=== PATIENT | female | born 1985 | race Caucasian/White ===

== ENCOUNTER 2019-03-29 08:55 | Inpatient (IN) ==
[2019-03-29] MEDS ORDERED: LACTATED RINGER'S 1,000 ML IV ONE (09:38)
[2019-03-29] MEDS ORDERED: BUTORPHANOL TARTRATE 2 MG/ML VIAL IV ONE (09:50)
--- NOTE | 2019-03-29 09:50 | History & Physical Report ---
Date of Service March 29, 2019 Assessment & Plan (1) 37 weeks gestation of : Carmel is a 34-year-old G1, P0 who presents at 37+6 with increasing contractions and rupture of membranes. Uncomplicated course. �GBS negative, O+, rubella immune �No history of asthma, migraines, hypertension, diabetes �Would like an epidural. No cord blood donation. �Membranes spontaneously ruptured during observation. �1/100/-2 �Contractions occurring about every 3 minutes �Admit to L&D, anticipate vaginal delivery with epidural �Lactated Ringer's 1 L bolus followed by 125 cc/h maintenance �Stadol 1 mg x 1 dose (2) Rupture of membranes with clear amniotic fluid: History of Present Illness Chief Complaint: Contractions Primary Care Provider: NO PCP Carmel is a 34-year-old G1, P0 with ROBERT 04/13 who presents at 37+6 with contractions. Her contractions began at about 1:15 AM and were about 5 minutes apart. They have increased gradually over the course of the morning. In the last hour they have become increasingly intense, 8/10 in intensity at time of visit, and have increased to every 3 minutes. She has had minimal pink-tinged clear discharge but has not had a gush of fluid. Denies altagracia vaginal bleeding. She is still felt good movement, and has no concerns for movement. She is not donating cord blood. She would like an epidural. She is group B strep negative, blood type O+, rubella immune, and received Tdap during . VDRL/RPR nonreactive, G/C-, CF screen negative. MSAFP negative. She has no other past medical history, and this has been uncomplicated. D Enies history of asthma, migraines, clotting disorders. SHX: [place] teeth extraction. No other surgical history. No problems or react ions to anesthesia. No known drug allergies, no known food allergies She is here with her , Thiago. No tobacco, alcohol, or substance use during . Review of Systems no fever, no chills, no body aches, no weakness and no problem reported no blind spots, no diplopia, not seeing flashes, no spots in vision, no worsening vision and no problem reported no ear pain, no ear discharge, no dizziness, no nasal congestion, no nasal discharge, no sore throat, no dysphagia and no problem reported no cough, no chest congestion, no change in sputum, no dyspnea, no dyspnea on exertion, no pain on inspiration, no sputum production and no wheezing + edema (trace swelling in feet/ankles, no change from normal); no chest pain, no chest pain at rest, no chest pain with activity, no dyspnea, no dyspnea at rest, no dyspnea on exertion, no orthopnea, no palpitations, no lightheadedness and no calf pain no abdominal pain, no heartburn, no nausea, no vomiting, no constipation and no diarrhea/loose stools no dysuria, no difficulty urinating, no hematuria, no abnormal vaginal bleeding and no vaginal discharge no joint pain, no myalgia, no muscle weakness and no body aches no rash, no lesions, no new lesions, no changing lesions and no problem reported no localized weakness, no generalized weakness, no paralysis, no loss of sensation, no tingling, no numbness, no paresthesia, no lack of coordination, no dizziness, no syncope, no headache(s) and no confusion no depression, no anxiety and no confusion no fatigue Physical Exam Physical Exam: General: A&Ox3. NAD. Cooperative. HEENT: Atraumatic, normocephalic. Pulm: CTAB A&P. -wheezes, -rales, -rhonchi. Symmetrical chest rise. No increase work of breathing. No respiratory distress. Cardiac: RRR, -mrg. Radial pulses intact and symmetrical. Abdominal: Abdomen distended consistent with third trimester . Nontender, no right upper quadrant tenderness. Extremity: 1+ edema in the ankles bilaterally. PT/DP pulses intact and symmetrical. Homans negative. No calf asymmetry. No calf tenderness, warmth, erythema. Neuro: Visual acuity grossly intact. Pupils equal and reactive to light and accommodation. Extraocular movements intact. Moving all external midis equally. 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 No distal extremity paresthesia or numbness. No facial asymmetry. Monitoring External Monitor Category 1 tracing. Baseline approximately 130 bpm. Moderate variability, no decelerations noted. Supervising Physician Co-Signing Physician Notes Resident Physician Supervision Note: I was present with Dr. Dr. Vega during the history and exam. I discussed the case with the resident and agree with the findings and plan as documented in the note. Any exceptions or clarifications are listed here: Patient ruptured grossly under observation. fetus category two with one variable noted. large ketones. will bolus. admit. cx--/-2. expectant management for now. toco--q3-5min Documented By: Mayra Neely MD, FACOG Resident Activity Tracking Resident Involvement: Resident Care Provided Care Provided: Adult Hospital Medicine
[2019-03-29] MEDS ORDERED: OXYTOCIN 30 UNITS/500 ML BAG IV PRN (10:10)
--- NOTE | 2019-03-29 10:18 | History & Physical Report ---
Date of Service March 29, 2019 Assessment & Plan (1) 37 weeks gestation of : Carmel is a 34-year-old G1, P0 who presents at 37+6 with increasing contractions and rupture of membranes. Uncomplicated course. �GBS negative, O+, rubella immune �No history of asthma, migraines, hypertension, diabetes �Would like an epidural. No cord blood donation. �Membranes spontaneously ruptured during observation. �1/100/-2 �Contractions occurring about every 3 minutes �Admit to L&D, anticipate vaginal delivery with epidural �Lactated Ringer's 1 L bolus followed by 125 cc/h maintenance �Stadol 1 mg x 1 dose (2) Rupture of membranes with clear amniotic fluid: History of Present Illness Primary Care Provider: NO PCP Carmel is a 34-year-old G1, P0 with ROBERT 04/13 who presents at 37+6 with contractions. Her contractions began at about 1:15 AM and were about 5 minutes apart. They have increased gradually over the course of the morning. In the last hour they have become increasingly intense, 8/10 in intensity at time of visit, and have increased to every 3 minutes. She has had minimal pink-tinged clear discharge but has not had a gush of fluid. Denies altagracia vaginal bleeding. She is still felt good movement, and has no concerns for movement. She is not donating cord blood. She would like an epidural. She is group B strep negative, blood type O+, rubella immune, and received Tdap during . VDRL/RPR nonreactive, G/C-, CF screen negative. MSAFP negative. She has no other past medical history, and this has been uncomplicated. D Enies history of asthma, migraines, clotting disorders. SHX: [place] teeth extraction. No other surgical history. No problems or reactions to anesthesia. No known drug allergies, no known food allergies She is here with her , Thiago. No tobacco, alcohol, or substance use during . Allergies Allergy/AdvReac Type Severity Reaction Status Date / Time No Known Drug Allergies Allergy Unknown Verified 03/29/19 10:29 Home Medications Home Medications Medication Instructions Recorded Confirmed Type PNV cmb#95-ferrous fumarate-FA 1 tab PO DAILY 03/29/19 03/29/19 History [] Review of Systems no fever, no chills, no body aches, no weakness and no problem reported no blind spots, no diplopia, not seeing flashes, no spots in vision, no worsening vision and no problem reported no ear pain, no ear discharge, no dizziness, no nasal congestion, no nasal discharge, no sore throat, no dysphagia and no problem reported no cough, no chest congestion, no change in sputum, no dyspnea, no dyspnea on exertion, no pain on inspiration, no sputum production and no wheezing + edema (trace swelling in feet/ankles, no change from normal); no chest pain, no chest pain at rest, no chest pain with activity, no dyspnea, no dyspnea at rest, no dyspnea on exertion, no orthopnea, no palpitations, no lightheadedness and no calf pain no abdominal pain, no heartburn, no nausea, no vomiting, no constipation and no diarrhea/loose stools no dysuria, no difficulty urinating, no hematuria, no abnormal vaginal bleeding and no vaginal discharge no joint pain, no myalgia, no muscle weakness and no body aches no rash, no lesions, no new lesions, no changing lesions and no problem reported no localized weakness, no generalized weakness, no paralysis, no loss of sensation, no tingling, no numbness, no paresthesia, no lack of coordination, no dizziness, no syncope, no headache(s) and no confusion no depression, no anxiety and no confusion no fatigue + edema (trace swelling in feet/ankles, no change from normal); no chest pain, no chest pain at rest, no chest pain with activity, no dyspnea, no dyspnea at rest, no dyspnea on exertion, no orthopnea, no palpitations, no lightheadedness and no calf pain Physical Exam Physical Exam: General: A&Ox3. NAD. Cooperative. HEENT: Atraumatic, normocephalic. Pulm: CTAB A&P. -wheezes, -rales, -rhonchi. Symmetrical chest rise. No increase work of breathing. No respiratory distress. Cardiac: RRR, -mrg. Radial pulses intact and symmetrical. Abdominal: Abdomen distended consistent with third trimester . Nontender, no right upper quadrant tenderness. Extremity: 1+ edema in the ankles bilaterally. PT/DP pulses intact and symmetrical. Homans negative. No calf asymmetry. No calf tenderness, warmth, erythema. Neuro: Visual acuity grossly intact. Pupils equal and reactive to light and accommodation. Extraocular movements intact. Moving all external midis equally. 5/5 diesel tractor operator strength, elbow flexion, elbow extension. No distal extremity paresthesia or numbness. No facial asymmetry. Monitoring External Monitor Category 1 tracing. Baseline approximately 130 bpm. Moderate variability, no decelerations noted. Supervising Physician Co-Signing Physician Notes I was present with Dr. Dr. Vega during the history and exam. I discussed the case with the resident and agree with the findings and plan as documented in the note. Any exceptions or clarifications are listed here: Patient ruptured grossly under observation. fetus category two with one variable noted. large ketones. will bolus. admit. cx--/-2. expectant management for now. toco--q3-5min Documented By: Mayra Neely MD, FACOG Resident Activity Tracking Resident Involvement: Resident Care Provided Care Provided: Adult Hospital Medicine
[2019-03-29 10:25] LABS: Hematocrit (blood only) 33.2 % (37-47); Hemoglobin 11.7 g/dL (12.0-16.0); Mean Corpuscular Volume 87.1 fL (80-100); Mean Platelet Volume 9.3 fL (7.4-10.4); Platelet Count 266 K/uL (130-400); RDW Coefficient of Variation 13.2 % (11.5-14.5); RDW Standard Deviation 42.4 fL (36.4-46.3); Red Blood Count 3.81 M/uL (4.2-5.4)
[2019-03-29 10:28] LABS: Mean Corpuscular Hgb Conc 35.2 g/dL (32-36)
[2019-03-29] MEDS ORDERED: BUTORPHANOL TARTRATE 2 MG/ML VIAL IV STA (11:52)
[2019-03-29] MEDS ORDERED: fentaNYL citrate 100 MCG/2 ML VIAL ONE (13:00)
[2019-03-29] MEDS: LACTATED RINGER'S 1,000 ML IV SCH ×2 (13:00→19:00)
[2019-03-29] MEDS ORDERED: ePHEDrine sulfate 50 MG/ML AMP ONE (13:00)
[2019-03-29] MEDS ORDERED: BUPIVACAINE 0.25% 30 ML VIAL ONE (13:00)
[2019-03-29] MEDS ORDERED: fentaNYL 2MCG/ML ROPIV 1.25MG/ML 100 ML BAG EPI ONE (13:01)
--- NOTE | 2019-03-29 13:09 | Obstetrical Progress Note ---
Date of Service March 29, 2019 Assessment & Plan (1) 37 weeks gestation of : (2) Rupture of membranes with clear amniotic fluid: active labor, good cx change. anesth consulted to place epidural. Subjective feels pressure, wants to have epidural if able. Physical Exam Constitutional: WD/WN, vitals as above Genitourinary: Manual OB Exam: + cervical dilation 6 cm, + cervical effacement 100%, + station 0 and + amniotic fluid clear OB Exam Monitor Tracing: + external FHT monitor used (120 moderate variability), + external uterine monitor used (not traced yet, but was q3) and + category I Results & Data Vital Signs (Past 12 Hours) Vital Signs Temp Pulse Resp BP 03/29/19 09:45 37 C 18 03/29/19 09:24 37 C 91 H 18 118/75
--- NOTE | 2019-03-29 13:10 | Anesthesiology Consultation ---
Date of Service March 29, 2019 Assessment & Plan (1) Encounter for pre-operative examination: Chart Review Chart Review: Acceptable Risk for Surgery Consults Requested none ASA ASA2 Proposed Anesthesia Anesthesia Type: Labor Epidural Risk / Benefits Reviewed With: PT / POA / Parent / Guardian, Accepts Plan and Informed Consent Obtained History Height/Weight Height: 5 ft 4 in Weight: 85.729 kg Allergies Allergy/AdvReac Type Severity Reaction Status Date / Time No Known Drug Allergies Allergy Unknown Verified 03/29/19 10:29 Medications Home Medications Medication Instructions Recorded Confirmed Last Taken PNV cmb#95-ferrous fumarate-FA 1 tab PO DAILY 03/29/19 03/29/19 Unknown [] NPO Date Last Intake of Fluids: 03/29/19 Time Last Intake of Fluids: 13:08 Date Last Intake of Solids: 03/28/19 Time Last Intake of Solids: 20:00 Past Medical History Medical History History of tooth extraction No known health problems Past Anesthesia History No Hx of Anesthesia Complications History of PONV No Hx of PONV and No Hx of Motion Sickness Social History Smoking Status: Never smoker Do You Dip or Chew Tobacco: No Hx Alcohol Use: No Hx Substance Use: No Review of Systems Patient denies active symptoms of GERD. Patient denies history of abnormal bleeding or bleeding disorder. Patient denies active use of anticoagulants other than low dose aspirin. Patient denies numbness, tingling or weakness in lower extremities. Physical Exam Vital Signs Last Vital Signs Temp 37 C 03/29/19 09:45 Pulse 91 H 03/29/19 09:24 Resp 18 03/29/19 09:45 BP 118/75 03/29/19 09:24 Constitutional + obese (gravid uterus) ENMT Mouth: no TMJ abnormality and oral opening not small Thyromental Distance: > or= 3.5 Finger Breadths Mallampati Class: II Neck normal visual inspection; neck extension not limited Respiratory normal respiratory effort Auscultation: lungs clear to auscultation bilaterally Cardiovascular Rate/Rhythm: regular rate and regular rhythm Heart Sounds: no murmur Neurologic moves all extremities Motor/Sensory: no sensory deficit Psychiatric Orientation: alert and oriented x 3 Testing Laboratory Results 03/29/19 10:15
[2019-03-29] MEDS ORDERED: ePHEDrine sulfate 50 MG/ML AMP IV PRN (13:35)
[2019-03-29] MEDS ORDERED: fentaNYL 2MCG/ML ROPIV 1.25MG/ML 100 ML BAG EPI PRN (13:35)
[2019-03-29] MEDS ORDERED: ONDANSETRON INJ 2 MG/ML 2 ML VIAL IV PRN (13:35)
[2019-03-29] MEDS ORDERED: NALOXONE HCL 0.4 MG/1 ML VIAL/CARP IV PRN (13:35)
[2019-03-29] MEDS ORDERED: NALBUPHINE HCL INJ 10 MG/ML AMP IV PRN (13:35)
[2019-03-29] MEDS ORDERED: NALOXONE HCL 1 MG in SODIUM CHLORIDE 0.9% 1000ML 1,000 ML IV PRN (13:35)
[2019-03-29] MEDS ORDERED: DiphenhydrAMINE HCL 50 MG/ML VIAL IV PRN (13:35)
--- NOTE | 2019-03-29 15:02 | Labor Progress Brief Note ---
Date of Service March 29, 2019 Subjective comfortable Assessment & Plan (1) 37 weeks gestation of : continue expectant mangement. anticipate . Physical Exam Constitutional: WD/WN, vitals as above Genitourinary: cx--9/100/0 toco--q2-4min efm--130s with mod variability, +accels, no decels Results & Data Vital Signs (Past 12 Hours) Vital Signs Temp Pulse Pulse Resp BP BP Pulse Ox 03/29/19 14:59 97 H 103/59 L 03/29/19 14:58 90 99 03/29/19 14:56 86 104/59 L 03/29/19 14:53 83 108/61 98 03/29/19 14:50 83 102/56 L 03/29/19 14:48 93 H 99 03/29/19 14:47 90 111/62 03/29/19 14:44 80 109/61 03/29/19 14:43 85 97 03/29/19 14:41 88 107/60 03/29/19 14:38 88 112/63 96 03/29/19 14:35 80 105/60 03/29/19 14:33 86 98 03/29/19 14:32 88 106/62 03/29/19 14:29 82 108/62 03/29/19 14:28 91 H 97 03/29/19 14:26 81 112/60 03/29/19 14:23 87 111/60 97 03/29/19 14:20 82 111/58 L 97 03/29/19 14:18 82 97 03/29/19 14:17 76 109/59 L 03/29/19 14:14 82 107/60 03/29/19 14:13 82 96 03/29/19 14:11 91 H 105/61 03/29/19 14:08 78 107/58 L 97 03/29/19 14:05 97 H 103/60 03/29/19 14:03 87 98 03/29/19 14:02 85 105/63 03/29/19 13:59 101 H 109/63 03/29/19 13:58 94 H 98 03/29/19 13:56 100 H 109/60 03/29/19 13:53 96 H 109/57 L 98 03/29/19 13:50 105 H 113/56 L 03/29/19 13:48 105 H 99 03/29/19 13:47 88 100/57 L 03/29/19 13:44 105 H 96/51 L 03/29/19 13:43 98 H 98 03/29/19 13:41 100 H 102/61 03/29/19 13:38 97 H 104/55 L 03/29/19 13:37 100 H 97 03/29/19 13:35 105 H 105/57 L 03/29/19 13:32 106 H 101/56 L 98 03/29/19 13:29 106 H 99/53 L 03/29/19 13:27 110 H 98 03/29/19 13:26 111 H 115/65 03/29/19 13:24 97 H 107/61 03/29/19 13:22 91 H 97 03/29/19 13:20 98 H 119/60 03/29/19 09:45 37 C 18 03/29/19 09:24 37 C 91 H 18 118/75
--- NOTE | 2019-03-29 16:52 | Labor Progress Brief Note ---
Date of Service March 29, 2019 Subjective feeling pressure with contractions Assessment & Plan (1) 37 weeks gestation of : begin second stage. anticipate . fetus reassuring. Physical Exam Constitutional: WD/WN, vitals as above Genitourinary: cx--c/c/+1 toco--q2-3min efm--150s with mod variability, accels to 170s, no decels. Results & Data Vital Signs (Past 12 Hours) Vital Signs Temp Pulse Pulse Resp BP BP Pulse Ox 03/29/19 16:48 101 H 98 03/29/19 16:43 88 100 03/29/19 16:42 86 107/50 L 76 L 03/29/19 16:38 87 100 03/29/19 16:33 95 H 98 03/29/19 16:28 80 99 03/29/19 16:25 92 H 92/57 L 03/29/19 16:23 88 99 03/29/19 16:18 100 H 97 03/29/19 16:13 81 100 03/29/19 16:10 81 105/55 L 83 L 03/29/19 16:08 80 100 03/29/19 16:03 83 100 03/29/19 15:58 79 98 03/29/19 15:54 79 93/53 L 03/29/19 15:53 81 100 03/29/19 15:48 92 H 93 03/29/19 15:47 85 104/59 L 03/29/19 15:44 86 107/59 L 03/29/19 15:43 81 98 03/29/19 15:41 95 H 107/57 L 03/29/19 15:38 75 106/56 L 99 03/29/19 15:35 85 102/56 L 03/29/19 15:33 89 98 03/29/19 15:32 92 H 104/57 L 03/29/19 15:29 84 108/59 L 03/29/19 15:28 83 98 03/29/19 15:26 82 107/58 L 03/29/19 15:23 96 H 103/61 97 03/29/19 15:20 77 122/56 L 03/29/19 15:18 78 98 03/29/19 15:17 74 103/57 L 03/29/19 15:14 82 107/58 L 03/29/19 15:13 84 98 03/29/19 15:11 75 110/60 03/29/19 15:08 89 107/61 98 03/29/19 15:07 37 C 81 18 110/60 98 03/29/19 15:05 89 108/59 L 03/29/19 15:03 88 98 03/29/19 15:02 88 107/60 03/29/19 14:59 97 H 103/59 L 03/29/19 14:58 90 99 03/29/19 14:56 86 104/59 L 03/29/19 14:53 83 108/61 98 03/29/19 14:50 83 102/56 L 03/29/19 14:48 93 H 99 03/29/19 14:47 90 111/62 03/29/19 14:44 80 109/61 03/29/19 14:43 85 97 03/29/19 14:41 88 107/60 03/29/19 14:38 88 112/63 96 03/29/19 14:35 80 105/60 03/29/19 14:33 86 98 03/29/19 14:32 88 106/62 03/29/19 14:29 82 108/62 03/29/19 14:28 91 H 97 03/29/19 14:26 81 112/60 03/29/19 14:23 87 111/60 97 03/29/19 14:20 82 111/58 L 97 03/29/19 14:18 82 97 03/29/19 14:17 76 109/59 L 03/29/19 14:14 82 107/60 03/29/19 14:13 82 96 03/29/19 14:11 91 H 105/61 03/29/19 14:08 78 107/58 L 97 03/29/19 14:05 97 H 103/60 03/29/19 14:03 87 98 03/29/19 14:02 85 105/63 03/29/19 13:59 101 H 109/63 03/29/19 13:58 94 H 98 03/29/19 13:56 100 H 109/60 03/29/19 13:53 96 H 109/57 L 98 03/29/19 13:50 105 H 113/56 L 03/29/19 13:48 105 H 99 03/29/19 13:47 88 100/57 L 03/29/19 13:44 105 H 96/51 L 03/29/19 13:43 98 H 98 03/29/19 13:41 100 H 102/61 03/29/19 13:38 97 H 104/55 L 03/29/19 13:37 100 H 97 03/29/19 13:35 105 H 105/57 L 03/29/19 13:32 106 H 101/56 L 98 03/29/19 13:29 106 H 99/53 L 03/29/19 13:27 110 H 98 03/29/19 13:26 111 H 115/65 03/29/19 13:24 97 H 107/61 03/29/19 13:22 91 H 97 03/29/19 13:20 98 H 119/60 03/29/19 09:45 37 C 18 03/29/19 09:24 37 C 91 H 18 118/75
--- NOTE | 2019-03-29 17:36 | Labor Progress Brief Note ---
Date of Service March 29, 2019 Subjective pushing with good effort Assessment & Plan (1) 37 weeks gestation of : Pushing with good effort, will continue second stage. variability good. anticipate . (2) tachycardia: Physical Exam Constitutional: WD/WN, vitals as above Genitourinary: caput visible with labia with push toco--q2-4min efm--baby is tachy in the 170-180 at this point. Results & Data Vital Signs (Past 12 Hours) Vital Signs Temp Pulse Pulse Resp BP BP Pulse Ox 03/29/19 17:33 117 H 86 L 03/29/19 17:28 124 H 96 03/29/19 17:25 144 H 124/86 03/29/19 17:24 107 H 91 03/29/19 17:23 116 H 98 03/29/19 17:18 104 H 93 03/29/19 17:13 108 H 96 03/29/19 17:11 110 H 125/81 03/29/19 17:10 106 H 91 03/29/19 17:08 96 H 97 03/29/19 17:03 107 H 69 L 03/29/19 17:02 109 H 84 L 03/29/19 16:58 95 H 98 03/29/19 16:57 98 H 111/69 03/29/19 16:53 96 H 99 03/29/19 16:48 101 H 98 03/29/19 16:43 88 100 03/29/19 16:42 86 107/50 L 76 L 03/29/19 16:38 87 100 03/29/19 16:33 95 H 98 03/29/19 16:28 80 99 03/29/19 16:25 92 H 92/57 L 03/29/19 16:23 88 99 03/29/19 16:18 100 H 97 03/29/19 16:13 81 100 03/29/19 16:10 81 105/55 L 83 L 03/29/19 16:08 80 100 03/29/19 16:03 83 100 03/29/19 15:58 79 98 03/29/19 15:54 79 93/53 L 03/29/19 15:53 81 100 03/29/19 15:48 92 H 93 03/29/19 15:47 85 104/59 L 03/29/19 15:44 86 107/59 L 03/29/19 15:43 81 98 03/29/19 15:41 95 H 107/57 L 03/29/19 15:38 75 106/56 L 99 03/29/19 15:35 85 102/56 L 03/29/19 15:33 89 98 03/29/19 15:32 92 H 104/57 L 03/29/19 15:29 84 108/59 L 03/29/19 15:28 83 98 03/29/19 15:26 82 107/58 L 03/29/19 15:23 96 H 103/61 97 03/29/19 15:20 77 122/56 L 03/29/19 15:18 78 98 03/29/19 15:17 74 103/57 L 03/29/19 15:14 82 107/58 L 03/29/19 15:13 84 98 03/29/19 15:11 75 110/60 03/29/19 15:08 89 107/61 98 03/29/19 15:07 37 C 81 18 110/60 98 03/29/19 15:05 89 108/59 L 03/29/19 15:03 88 98 03/29/19 15:02 88 107/60 03/29/19 14:59 97 H 103/59 L 03/29/19 14:58 90 99 03/29/19 14:56 86 104/59 L 03/29/19 14:53 83 108/61 98 03/29/19 14:50 83 102/56 L 03/29/19 14:48 93 H 99 03/29/19 14:47 90 111/62 03/29/19 14:44 80 109/61 03/29/19 14:43 85 97 03/29/19 14:41 88 107/60 03/29/19 14:38 88 112/63 96 03/29/19 14:35 80 105/60 03/29/19 14:33 86 98 03/29/19 14:32 88 106/62 03/29/19 14:29 82 108/62 03/29/19 14:28 91 H 97 03/29/19 14:26 81 112/60 03/29/19 14:23 87 111/60 97 03/29/19 14:20 82 111/58 L 97 03/29/19 14:18 82 97 03/29/19 14:17 76 109/59 L 03/29/19 14:14 82 107/60 03/29/19 14:13 82 96 03/29/19 14:11 91 H 105/61 03/29/19 14:08 78 107/58 L 97 03/29/19 14:05 97 H 103/60 03/29/19 14:03 87 98 03/29/19 14:02 85 105/63 03/29/19 13:59 101 H 109/63 03/29/19 13:58 94 H 98 03/29/19 13:56 100 H 109/60 03/29/19 13:53 96 H 109/57 L 98 03/29/19 13:50 105 H 113/56 L 03/29/19 13:48 105 H 99 03/29/19 13:47 88 100/57 L 03/29/19 13:44 105 H 96/51 L 03/29/19 13:43 98 H 98 03/29/19 13:41 100 H 102/61 03/29/19 13:38 97 H 104/55 L 03/29/19 13:37 100 H 97 03/29/19 13:35 105 H 105/57 L 03/29/19 13:32 106 H 101/56 L 98 03/29/19 13:29 106 H 99/53 L 03/29/19 13:27 110 H 98 03/29/19 13:26 111 H 115/65 03/29/19 13:24 97 H 107/61 03/29/19 13:22 91 H 97 03/29/19 13:20 98 H 119/60 03/29/19 09:45 37 C 18 03/29/19 09:24 37 C 91 H 18 118/75
--- NOTE | 2019-03-29 18:09 | Labor Progress Brief Note ---
Date of Service March 29, 2019 Subjective pushing with good effort Assessment & Plan (1) tachycardia: Category two fetus but still reassuring. continue second stage. Just drained bladder. feel like baby is cintia. Physical Exam Constitutional: WD/WN, vitals as above Genitourinary: c/c/+1-2 toco--q2-3min efm--185 with mod variability, for the last 40 minutes, variables with pushing. Results & Data Vital Signs (Past 12 Hours) Vital Signs Temp Pulse Pulse Resp BP BP Pulse Ox 03/29/19 18:03 110 H 95 03/29/19 17:58 106 H 94 03/29/19 17:55 130 H 116/63 03/29/19 17:54 37.4 C 03/29/19 17:53 126 H 91 03/29/19 17:48 118 H 83 L 03/29/19 17:43 117 H 94 03/29/19 17:40 114 H 118/81 03/29/19 17:38 113 H 96 03/29/19 17:33 117 H 86 L 03/29/19 17:28 124 H 96 03/29/19 17:25 144 H 124/86 03/29/19 17:24 107 H 91 03/29/19 17:23 116 H 98 03/29/19 17:18 104 H 93 03/29/19 17:13 108 H 96 03/29/19 17:11 110 H 125/81 03/29/19 17:10 106 H 91 03/29/19 17:08 96 H 97 03/29/19 17:03 107 H 69 L 03/29/19 17:02 109 H 84 L 03/29/19 16:58 95 H 98 03/29/19 16:57 98 H 111/69 03/29/19 16:53 96 H 99 03/29/19 16:48 101 H 98 03/29/19 16:43 88 100 03/29/19 16:42 86 107/50 L 76 L 03/29/19 16:38 87 100 03/29/19 16:33 95 H 98 03/29/19 16:28 80 99 03/29/19 16:25 92 H 92/57 L 03/29/19 16:23 88 99 03/29/19 16:18 100 H 97 03/29/19 16:13 81 100 03/29/19 16:10 81 105/55 L 83 L 03/29/19 16:08 80 100 03/29/19 16:03 83 100 03/29/19 15:58 79 98 03/29/19 15:54 79 93/53 L 03/29/19 15:53 81 100 03/29/19 15:48 92 H 93 03/29/19 15:47 85 104/59 L 03/29/19 15:44 86 107/59 L 03/29/19 15:43 81 98 03/29/19 15:41 95 H 107/57 L 03/29/19 15:38 75 106/56 L 99 03/29/19 15:35 85 102/56 L 03/29/19 15:33 89 98 03/29/19 15:32 92 H 104/57 L 03/29/19 15:29 84 108/59 L 03/29/19 15:28 83 98 03/29/19 15:26 82 107/58 L 03/29/19 15:23 96 H 103/61 97 03/29/19 15:20 77 122/56 L 03/29/19 15:18 78 98 03/29/19 15:17 74 103/57 L 03/29/19 15:14 82 107/58 L 03/29/19 15:13 84 98 03/29/19 15:11 75 110/60 03/29/19 15:08 89 107/61 98 03/29/19 15:07 37 C 81 18 110/60 98 03/29/19 15:05 89 108/59 L 03/29/19 15:03 88 98 03/29/19 15:02 88 107/60 03/29/19 14:59 97 H 103/59 L 03/29/19 14:58 90 99 03/29/19 14:56 86 104/59 L 03/29/19 14:53 83 108/61 98 03/29/19 14:50 83 102/56 L 03/29/19 14:48 93 H 99 03/29/19 14:47 90 111/62 03/29/19 14:44 80 109/61 03/29/19 14:43 85 97 03/29/19 14:41 88 107/60 03/29/19 14:38 88 112/63 96 03/29/19 14:35 80 105/60 03/29/19 14:33 86 98 03/29/19 14:32 88 106/62 03/29/19 14:29 82 108/62 03/29/19 14:28 91 H 97 03/29/19 14:26 81 112/60 03/29/19 14:23 87 111/60 97 03/29/19 14:20 82 111/58 L 97 03/29/19 14:18 82 97 03/29/19 14:17 76 109/59 L 03/29/19 14:14 82 107/60 03/29/19 14:13 82 96 03/29/19 14:11 91 H 105/61 03/29/19 14:08 78 107/58 L 97 03/29/19 14:05 97 H 103/60 03/29/19 14:03 87 98 03/29/19 14:02 85 105/63 03/29/19 13:59 101 H 109/63 03/29/19 13:58 94 H 98 03/29/19 13:56 100 H 109/60 03/29/19 13:53 96 H 109/57 L 98 03/29/19 13:50 105 H 113/56 L 03/29/19 13:48 105 H 99 03/29/19 13:47 88 100/57 L 03/29/19 13:44 105 H 96/51 L 03/29/19 13:43 98 H 98 03/29/19 13:41 100 H 102/61 03/29/19 13:38 97 H 104/55 L 03/29/19 13:37 100 H 97 03/29/19 13:35 105 H 105/57 L 03/29/19 13:32 106 H 101/56 L 98 03/29/19 13:29 106 H 99/53 L 03/29/19 13:27 110 H 98 03/29/19 13:26 111 H 115/65 03/29/19 13:24 97 H 107/61 03/29/19 13:22 91 H 97 03/29/19 13:20 98 H 119/60 03/29/19 09:45 37 C 18 03/29/19 09:24 37 C 91 H 18 118/75
--- NOTE | 2019-03-29 18:51 | Labor Progress Brief Note ---
Date of Service March 29, 2019 Subjective pushing for about 1 hr 45 min Assessment & Plan (1) 37 weeks gestation of : Has made a little bit of progress. Will now try to push in knee chest. fetus was tachy for awhile , but now resolved. Will continue to push as has been making slow progress. Physical Exam Constitutional: WD/WN, vitals as above Genitourinary: cx--c/c/+1-+2 toco--q2-3min efm--160s wtih mod variability, +accels, variables with pushing Results & Data Vital Signs (Past 12 Hours) Vital Signs Temp Pulse Pulse Resp BP BP Pulse Ox 03/29/19 18:47 101 H 91 03/29/19 18:43 97 H 94 03/29/19 18:37 92 H 94 03/29/19 18:32 113 H 93 03/29/19 18:28 108 H 94 03/29/19 18:23 102 H 94 03/29/19 18:18 99 H 94 03/29/19 18:15 105 H 94 03/29/19 18:13 102 H 95 03/29/19 18:10 124 H 90 03/29/19 18:08 105 H 79 L 03/29/19 18:03 110 H 95 03/29/19 17:58 106 H 94 03/29/19 17:55 130 H 116/63 03/29/19 17:54 37.4 C 03/29/19 17:53 126 H 91 03/29/19 17:48 118 H 83 L 03/29/19 17:43 117 H 94 03/29/19 17:40 114 H 118/81 03/29/19 17:38 113 H 96 03/29/19 17:33 117 H 86 L 03/29/19 17:28 124 H 96 03/29/19 17:25 144 H 124/86 03/29/19 17:24 107 H 91 03/29/19 17:23 116 H 98 03/29/19 17:18 104 H 93 03/29/19 17:13 108 H 96 03/29/19 17:11 110 H 125/81 03/29/19 17:10 106 H 91 03/29/19 17:08 96 H 97 03/29/19 17:03 107 H 69 L 03/29/19 17:02 109 H 84 L 03/29/19 16:58 95 H 98 03/29/19 16:57 98 H 111/69 03/29/19 16:53 96 H 99 03/29/19 16:48 101 H 98 03/29/19 16:43 88 100 03/29/19 16:42 86 107/50 L 76 L 03/29/19 16:38 87 100 03/29/19 16:33 95 H 98 03/29/19 16:28 80 99 03/29/19 16:25 92 H 92/57 L 03/29/19 16:23 88 99 03/29/19 16:18 100 H 97 03/29/19 16:13 81 100 03/29/19 16:10 81 105/55 L 83 L 03/29/19 16:08 80 100 03/29/19 16:03 83 100 03/29/19 15:58 79 98 03/29/19 15:54 79 93/53 L 03/29/19 15:53 81 100 03/29/19 15:48 92 H 93 03/29/19 15:47 85 104/59 L 03/29/19 15:44 86 107/59 L 03/29/19 15:43 81 98 03/29/19 15:41 95 H 107/57 L 03/29/19 15:38 75 106/56 L 99 03/29/19 15:35 85 102/56 L 03/29/19 15:33 89 98 03/29/19 15:32 92 H 104/57 L 03/29/19 15:29 84 108/59 L 03/29/19 15:28 83 98 03/29/19 15:26 82 107/58 L 03/29/19 15:23 96 H 103/61 97 03/29/19 15:20 77 122/56 L 03/29/19 15:18 78 98 03/29/19 15:17 74 103/57 L 03/29/19 15:14 82 107/58 L 03/29/19 15:13 84 98 03/29/19 15:11 75 110/60 03/29/19 15:08 89 107/61 98 03/29/19 15:07 37 C 81 18 110/60 98 03/29/19 15:05 89 108/59 L 03/29/19 15:03 88 98 03/29/19 15:02 88 107/60 03/29/19 14:59 97 H 103/59 L 03/29/19 14:58 90 99 03/29/19 14:56 86 104/59 L 03/29/19 14:53 83 108/61 98 03/29/19 14:50 83 102/56 L 03/29/19 14:48 93 H 99 03/29/19 14:47 90 111/62 03/29/19 14:44 80 109/61 03/29/19 14:43 85 97 03/29/19 14:41 88 107/60 03/29/19 14:38 88 112/63 96 03/29/19 14:35 80 105/60 03/29/19 14:33 86 98 03/29/19 14:32 88 106/62 03/29/19 14:29 82 108/62 03/29/19 14:28 91 H 97 03/29/19 14:26 81 112/60 03/29/19 14:23 87 111/60 97 03/29/19 14:20 82 111/58 L 97 03/29/19 14:18 82 97 03/29/19 14:17 76 109/59 L 03/29/19 14:14 82 107/60 03/29/19 14:13 82 96 03/29/19 14:11 91 H 105/61 03/29/19 14:08 78 107/58 L 97 03/29/19 14:05 97 H 103/60 03/29/19 14:03 87 98 03/29/19 14:02 85 105/63 03/29/19 13:59 101 H 109/63 03/29/19 13:58 94 H 98 03/29/19 13:56 100 H 109/60 03/29/19 13:53 96 H 109/57 L 98 03/29/19 13:50 105 H 113/56 L 03/29/19 13:48 105 H 99 03/29/19 13:47 88 100/57 L 03/29/19 13:44 105 H 96/51 L 03/29/19 13:43 98 H 98 03/29/19 13:41 100 H 102/61 03/29/19 13:38 97 H 104/55 L 03/29/19 13:37 100 H 97 03/29/19 13:35 105 H 105/57 L 03/29/19 13:32 106 H 101/56 L 98 03/29/19 13:29 106 H 99/53 L 03/29/19 13:27 110 H 98 03/29/19 13:26 111 H 115/65 03/29/19 13:24 97 H 107/61 03/29/19 13:22 91 H 97 03/29/19 13:20 98 H 119/60 03/29/19 09:45 37 C 18 03/29/19 09:24 37 C 91 H 18 118/75
[2019-03-29] MEDS ORDERED: OXYCODONE/ACETAMINOPHEN 5mg/325mg TAB PO PRN (20:16)
[2019-03-29] MEDS ORDERED: ACETAMINOPHEN 325 MG TAB PO PRN (20:16)
[2019-03-29 20:34] LABS: Cord Venous Blood HCO3 18 mmol/L (18.4-26.8); Cord Venous Blood PCO2 34 mmHg (30.4-57.2); Cord Venous Blood PO2 28 mmHg (14.1-43.3); Cord Venous Blood pH 7.33 (7.20-7.44)
[2019-03-29 20:42] LABS: Base Excess Cord Arterial Bld -8.7 mEq/L (-9-1.8); CO2 Cord Arterial Blood 46 mmHg (39.1-73.5); HCO3 Cord Arterial Blood 19 mmol/L (19.7-28.5); pH Cord Arterial Blood 7.23 (7.1-7.38)
--- NOTE | 2019-03-29 20:53 | Anesthesia Procedure Note ---
Date of Service March 29, 2019 Anesthesia Post Epidural Note Vital Signs Vital Signs: Temp Pulse Resp BP Pulse Ox 37.8 C H 99 H 18 97/53 L 91 03/29/19 20:13 03/29/19 20:45 03/29/19 20:28 03/29/19 20:45 03/29/19 19:49 Pain Intensity Bilateral Abdomen: Pain Intensity: 4 Notes Mental Status: alert / awake / arousable and participated in evaluation Nausea / Vomiting: adequately controlled Pain: adequately controlled Airway Patency, RR, SpO2: stable & adequate BP & HR: stable & adequate Hydration State: stable & adequate Neuraxial Anesthesia: was administered and sensory block is resolving Anesthetic Complications: no major complications apparent and Pt Satisfied with anesthetic care Epidural: Removed without complications and With tip intact Notes: Epidural site clean, dry and intact. No signs of edema, erythema or bruising at insertion site. Pt instructed to request anesthesia if she has residual lower extremity numbness or if she develops lower extremity pain or weakness, back pain or headache.
--- NOTE | 2019-03-30 00:13 | Delivery Summary ---
DATE OF OPERATION: 03/29/2019 DATE OF DELIVERY: 03/29/2019 PREOPERATIVE DIAGNOSES: 1. Intrauterine at 37+ weeks. 2. Active labor. 3. Spontaneous rupture of membranes. POSTOPERATIVE DIAGNOSES: 1. Intrauterine at 37+ weeks. 2. Active labor. 3. Spontaneous rupture of membranes. 4. tachycardia. 5. Maternal exhaustion. PROCEDURES: 1. Epidural anesthesia. 2. Vacuum assisted vaginal delivery. 3. Second degree perineal laceration with repair. SURGEON: Mayra Neely MD ANESTHESIA: Epidural. ESTIMATED BLOOD LOSS: 350 mL. PROCEDURE: The patient was admitted to labor and delivery. At the beginning of her labor, she was 100%, she shortly SROMed after her check for clear fluid. She progressed to 6 cm, underwent an epidural anesthetic and then progressed to complete-complete and +1 station. She pushed for approximately 2-1/2 hours with intermittent tachycardia in the 180s to 200s that would then return back down to the 150s to 160s. There was good variability throughout. There were variables with pushing. The patient was able to push the baby to +3 to +4 station in CASS presentation. The bladder had been drained recently, decision was made to assist with vacuum for outlet. The patient gave verbal permission for this after discussing the risks and benefits. The vacuum was applied over contraction with 1 pull and a popoff and then another application and another pull and successful delivery of the vertex. The pressure was never above 50 mmHg. The vacuum was released. There was no nuchal cord. The nose and mouth were bulb suctioned. The head restituted to the right and the rest of the infant was then delivered without difficulty. Infant was immediately vigorous, was placed on the maternal abdomen for drying and attention. The cord was clamped and cut at 1 minute of life. Cord blood and gases were obtained. Placenta was delivered spontaneously intact with a 3-vessel cord. There was a marginal insertion. Hemostasis was obtained with dilute Pitocin and fundal massage. On evaluation, there was a left labial and second degree perineal laceration that was repaired with 3-0 Vicryl in a normal standard fashion. Cervix, sulci and rectum were examined and found to be intact. Apgars were 8 and 9. Mother and baby doing well at the end of the delivery. I attest to the content of the Intraoperative Record and any orders documented therein. Any exception s are noted below.
[2019-03-30] MEDS ORDERED: BISACODYL 10 MG SUPP PR PRN (02:08)
[2019-03-30] MEDS ORDERED: OXYTOCIN 30 UNITS/500 ML BAG IV PRN (02:08)
[2019-03-30] MEDS ORDERED: BENZOCAINE 20% AER SPR 82.5 GM CAN EXT PRN (02:08)
[2019-03-30] MEDS ORDERED: HYDROCORTISONE ACETATE 25 MG SUPP PR PRN (02:08)
[2019-03-30] MEDS ORDERED: SUPERCREAM 0.870% 15 GM JAR EXT PRN (02:08)
[2019-03-30] MEDS ORDERED: DIPHTHERIA/TETANUS/PERTUSSIS 0.5 ML SYR/VIAL IM ONE (02:08)
[2019-03-30] MEDS: IBUPROFEN 600 MG TAB PO PRN ×3 (04:36→20:03)
--- NOTE | 2019-03-30 06:46 | Obstetrical Progress Note ---
Date of Service <Nicholas Vega MD - Last Filed: 03/30/19 06:46> March 30, 2019 Assessment & Plan <Nicholas Vega MD - Last Filed: 03/30/19 06:46> (1) 37 weeks gestation of : (2) Rupture of membranes with clear amniotic fluid: (3) Status post vacuum-assisted vaginal delivery: Carmel is a 34-year-old G1, P0 who presented at 37+6 with increasing contractions and rupture of membranes now s/p VAVD PPD#1 �GBS negative, O+, rubella immune - Feels well today. Eating well, voiding well, ambulating well. - well without difficulty - Pain well controlled with ibuprofen 600mg Q4H PRN. - Routine care - After discharge will have [address] Neely. Subjective <Nicholas Vega MD - Last Filed: 03/30/19 06:46> Ambulation: ambulating normally Voiding: no voiding problems Passing Gas:: Yes Diet Tolerance:: regular diet Lochia:: Moderate Feeding Type:: breast feeding Current Pain Level(1-10): 4 Review of Systems Denies fever, chills, sweats Denies shortness of breath, difficulty breathing, chest pain, palpitations, chest pressure. Denies breast pain. Denies dysuria. Denies headache. Physical Exam <Nicholas Vega MD - Last Filed: 03/30/19 06:46> General: Alert, oriented. No acute distress. Cardiac: Regular rate and rhythm, no murmurs/rubs/gallops. Respiratory: Clear to auscultation anterior and posteriorly, no wheezes/rales/rhonchi. No increased work of breathing. Symmetrical chest rise. No respiratory distress. Abdomen: Soft, nontender, nondistended. Bowel sounds present. Uterus: Uterine fundus firm, palpable 1cm below umbilicus slightly levo rotated. Lower Extremities: No lower extremity edema or swelling. No deep calf pain. Humza's negative bilaterally. Results & Data <Nicholas Vega MD - Last Filed: 03/30/19 06:46> Vital Signs (Past 12 Hours) Vital Signs Temp Pulse Pulse Resp BP BP Pulse Ox 03/30/19 03:27 36.8 C 86 16 114/70 98 03/29/19 23:05 36.7 C 95 H 18 111/73 98 03/29/19 22:15 104 H 103/55 L 03/29/19 22:10 37.6 C H 96 H 18 109/56 L 03/29/19 21:40 110 H 18 105/58 L 03/29/19 21:10 18 03/29/19 21:08 95 H 102/56 L 03/29/19 21:05 97 H 104/56 L 03/29/19 20:55 105 H 18 100/54 L 03/29/19 20:45 99 H 97/53 L 03/29/19 20:40 18 03/29/19 20:35 96 H 89/53 L 03/29/19 20:33 96 H 100/54 L 03/29/19 20:28 18 03/29/19 20:25 99 H 109/60 03/29/19 20:13 37.8 C H 103 H 18 119/56 L 03/29/19 19:49 119 H 91 03/29/19 19:44 128 H 93 03/29/19 19:41 118 H 158/67 H 03/29/19 19:39 114 H 83 L 03/29/19 19:33 122 H 89 L 03/29/19 19:28 125 H 88 L 03/29/19 19:27 130 H 136/91 03/29/19 19:24 137 H 89 L 03/29/19 19:18 113 H 93 03/29/19 19:13 112 H 94 03/29/19 19:10 100 H 112/83 03/29/19 19:07 111 H 93 03/29/19 19:05 37.6 C H 18 03/29/19 19:03 112 H 81 L 03/29/19 19:01 37.6 C H 108 H 18 94 03/29/19 18:58 113 H 90 03/29/19 18:53 108 H 93 03/29/19 18:49 105 H 93 03/29/19 18:47 101 H 91 <Mayra Neely MD, FACOG - Last Filed: 03/30/19 07:35> Co-Signing Physician Notes Resident Physician Supervision Note: I interviewed and examined the patient. Discussed with Dr. Vega and agree with findings and plan as documented in the note. Any exceptions or clarifications are listed here: Doing well. Routine care. Documented By: Mayra Neely MD, FACOG Resident Activity Tracking <Nicholas Vega MD - Last Filed: 03/30/19 06:46> Resident Involvement: Resident Care Provided Care Provided: Adult Hospital Medicine
[2019-03-30 07:05] LABS: Hematocrit (blood only) 26.6 % (37-47); Hemoglobin 9.5 g/dL (12.0-16.0)
[2019-03-30] MEDS: DOCUSATE SODIUM 100 MG CAP PO SCH ×4 (10:09→20:03)
[2019-03-30] MEDS: PRENATAL VITAMIN 1 TAB PO SCH (10:09)
[2019-03-30] MEDS ORDERED: BISACODYL 5 MG TABEC PO SCH (20:00)
--- NOTE | 2019-03-31 07:01 | Obstetrical Progress Note ---
Date of Service March 31, 2019 Assessment & Plan (1) Status post vacuum-assisted vaginal delivery: ready for d/c home, stable, routine pp instructions reviewed, f/u 6 wk pp check. Subjective no complaints. getting some rest this am. baby in nursery. breast feeding going better. eating, drinking, ambulating and urinating without problem. Physical Exam Constitutional: WD/WN, vitals as above Respiratory: normal respiratory effort, lungs clear to auscultation Cardiovascular: Rate/Rhythm: regular rate and regular rhythm Gastrointestinal (Abdomen): Inspection/Auscultation: abdomen normal to inspection Percussion/Palpation: abdomen soft fundus firm at umbilicus--pt has not voided yet Musculoskeletal: non tender calves Psychiatric: A+Ox3, euthymic affect Results & Data Vital Signs (Past 12 Hours) Vital Signs Temp Pulse Resp BP 03/31/19 00:00 36.6 C 93 H 18 113/73 03/30/19 20:15 36.6 C 103 H 18 112/70
[2019-03-31] MEDS: DOCUSATE SODIUM 100 MG CAP PO SCH (09:09)
[2019-03-31] MEDS: PRENATAL VITAMIN 1 TAB PO SCH (09:09)
--- NOTE | 2019-04-02 08:26 | Discharge Summary ---
ADMISSION DIAGNOSES: 1. Intrauterine at 37 and 6/7 weeks. 2. Spontaneous rupture of membranes. 3. Early labor. DISCHARGE DIAGNOSES: 1. Intrauterine at 37 and 6/7 weeks. 2. Spontaneous rupture of membranes. 3. Early labor. 4. Maternal exhaustion with tachycardia. PROCEDURES: 1. Epidural anesthesia. 2. Vacuum-assisted vaginal delivery. HISTORY: For the patient's complete history and physical, please see her history and physical. This is a 34-year-old 1, para 0 with an ROBERT of 04/13/2019, who presented at 37 and 6/7 weeks with contractions. Under observation, she ruptured for clear fluid. At the time of admission, she was 1, 100, and -2. For the rest of the patient's detailed history and physical, please see her history and physical. ASSESSMENT: This is a 34-year-old G1, P0 at 37 and 6/7 weeks with early labor and PROM. HOSPITAL COURSE: The patient was admitted. She progressed to 6 cm dilated, underwent an epidural anesthetic and then progressed to complete-complete and +2 station. She pushed for 2-1/2 hours with intermittent tachycardia in the 180s to 200s, then would return back down to 150s to 160s. She was afebrile. There was good variability throughout. There were variables with pushing. The patient was able to push the baby down to +3, +4 station in CASS presentation. A decision was made to apply a vacuum secondary mostly to maternal exhaustion. The vacuum was applied and with 2 applications and 1 pop-off, the baby was delivered over an intact perineum. The pressure was never above 50 mmHg. The nose and mouth were bulb suctioned. There was no nuchal cord. The cord was clamped and cut at 1 minute of life. Apgars were 8 and 9. The mother and baby doing well at the end of the delivery. A left labial and second-degree perineal laceration were repaired. The patient's course was uncomplicated. She tolerated a regular diet, ambulated, went through routine care, and was discharged home on day #2.
== END 2019-03-31 11:45 | disposition home or self-care (01) | DRG 807 ==
LOC: OPB 08:55 → 4S2 08:55

== ENCOUNTER 2024-08-19 22:06 | Inpatient (IN) ==
[2024-08-19] MEDS ORDERED: CALCIUM CARBONATE 500 MG CHEWABLE TAB PO PRN (23:21)
[2024-08-19] MEDS ORDERED: LIDOCAINE 1% LOCAL 20 ML VIAL INFIL PRN (23:21)
[2024-08-19] MEDS ORDERED: ACETAMINOPHEN 325 MG TAB PO PRN (23:21)
[2024-08-19] MEDS: LACTATED RINGER'S 1,000 ML IV SCH (23:40)
[2024-08-19] MEDS: PENICILLIN GK 6 MU in DEXTROSE 5% 250 ML IV STA (23:52)
[2024-08-19 23:54] LABS: Hematocrit (blood only) 34.8 % (37.0-47.0); Mean Corpuscular Hemoglobin 30.1 pg (25.0-34.0); Mean Corpuscular Hgb Conc 34.5 g/dL (32.0-36.0); Mean Corpuscular Volume 87.2 fL (80.0-100.0); Mean Platelet Volume 9.9 fL (9.4-12.4); Platelet Count 278 K/uL (130-400); RDW Coefficient of Variation 13.2 % (11.5-14.5); RDW Standard Deviation 41.1 fL (36.4-46.3); Red Blood Count 3.99 M/uL (4.20-5.40); White Blood Count 13.79 K/ul (4.8-10.8)
[2024-08-19] MEDS ORDERED: diphenhydrAMINE 50 MG/ML VIAL IV PRN (23:59)
[2024-08-19] MEDS ORDERED: BUPIVACAINE 0.25% PF 30 ML VIAL EPI PRN (23:59)
[2024-08-19] MEDS ORDERED: NALOXONE HCL 0.4 MG/1 ML VIAL/CARP IV PRN (23:59)
[2024-08-19] MEDS ORDERED: NALBUPHINE HCL INJ 10 MG/ML AMP IV PRN (23:59)
[2024-08-19] MEDS ORDERED: ePHEDrine sulfate 50 MG/ML AMP IV PRN (23:59)
[2024-08-19] MEDS ORDERED: ONDANSETRON INJ 2 MG/ML 2 ML VIAL IV PRN (23:59)
[2024-08-19] MEDS ORDERED: SODIUM CHLORIDE 0.9% PF INJ 10 ML VIAL EPI PRN (23:59)
[2024-08-19] MEDS ORDERED: ROPIVACAINE 0.5% PF 5 MG/ML 20 ML VIAL EPI PRN (23:59)
[2024-08-19] MEDS ORDERED: fentaNYL citrate PF 100 MCG/2 ML VIAL EPI PRN (23:59)
[2024-08-19] MEDS ORDERED: fentANYL 2 MCG/ML BUPIVacaine 0.125%-NSS 100ML BAG EPI PRN (23:59)
[2024-08-19] MEDS ORDERED: NALOXONE HCL 1 MG in SODIUM CHLORIDE 0.9% 1,000 ML IV PRN (23:59)
[2024-08-19] MEDS ORDERED: LIDOCAINE 2% MPF LOCAL 5 ML VIAL EPI PRN (23:59)
[2024-08-20] MEDS: LIDOCAINE 2%/EPINEPHRINE 1:200,000 20 ML PF ONE (00:15)
[2024-08-20] MEDS: BUPIVACAINE 0.25% PF 30 ML VIAL ONE (00:15)
[2024-08-20] MEDS: SODIUM CHLORIDE 0.9% PF INJ 10 ML VIAL ONE (00:15)
[2024-08-20] MEDS: fentANYL 2 MCG/ML BUPIVacaine 0.125%-NSS 100ML BAG ONE (00:16)
--- NOTE | 2024-08-20 00:24 | Anesthesiology Consultation ---
Date of Service August 20, 2024 Assessment & Plan Chart Review Chart Review: Patient NOT seen in Pre Admission Testing and Acceptable Risk for Labor Epidural Consults Requested none ASA ASA2 Proposed Anesthesia Anesthesia Type: Labor Epidural Risk / Benefits Reviewed With: PT / POA / Parent / Guardian, Accepts Plan and Informed Consent Obtained History Height/Weight Height: 5 ft 3 in Weight: 94.347 kg Allergies Allergy/AdvReac Type Severity Reaction Status Date / Time No Known Drug Allergies Allergy NKA Verified 08/19/24 22:32 Medications Home Medications Medication Instructions Recorded Confirmed Last Taken 21-iron fu-folic acid 1 tab PO DAILY 01/17/24 08/19/24 08/19/24 [ Complete] acetone (urine) test (Ketone Urine #50 ea 06/27/24 08/15/24 Unknown Test strips) blood sugar diagnostic (OneTouch #150 ea 06/27/24 08/15/24 Unknown Verio test strips) blood-glucose meter (OneTouch #1 ea 06/27/24 08/15/24 Unknown Verio Reflect Meter) lancets 33 gauge (OneTouch Delica #150 ea 06/27/24 08/15/24 Unknown Plus Lancet) Active Medications Generic Name Dose Route Start Last Admin Trade Name Freq PRN Reason Stop Dose Admin Lactated Ringer's 1,000 mls @ 50 mls/hr 08/20/24 00:15 08/20/24 00:15 Lr IV 08/21/24 00:14 50 mls/hr .Q20H TORI Infusion Past Medical History Medical History History of chicken pox No known health problems Exercise / Class Metabolic Activity II 4-5 Yardwork/Stairs/Walk up hill Past Family History Family History Mother Depression Heart murmur Grandmother (Maternal) Lung cancer Other Colorectal cancer Denies family history of Ovarian cancer Breast cancer Past Surgical History Surgical History History of tooth extraction wisdom teeth Past Anesthesia History No Hx of Anesthesia Complications and No Family Hx of Anesthesia Complications History of PONV No Hx of PONV and No Hx of Motion Sickness Social History Smoking Status: Never smoker Do You Dip or Chew Tobacco: No Hx Alcohol Use: No Hx Substance Use: No substance use type: does not use Physical Exam Vital Signs Last Vital Signs Temp 36.9 C 08/19/24 22:32 Pulse 87 08/20/24 00:23 Resp 20 08/20/24 00:21 BP 120/56 L 08/20/24 00:23 Pulse Ox 97 08/20/24 00:21 ENMT Mouth: no dentition abnormality Thyromental Distance: > or= 3.5 Finger Breadths Mallampati Class: II Neck normal visual inspection Respiratory normal respiratory effort Auscultation: lungs clear to auscultation bilaterally Cardiovascular Rate/Rhythm: regular rate and regular rhythm Psychiatric Orientation: alert Testing Laboratory Results 08/19/24 23:29
--- NOTE | 2024-08-20 00:42 | History & Physical Report ---
Date of Service August 20, 2024 Assessment & Plan (1) Elderly multigravida: Plan: IUP at 38+ weeks who presented because of initial complaint of ruptured membranes but now has been found to be in early labor. We will begin GBS prophylaxis and reassessed membrane status after second dose of antibiotic has been started. Epidural is being requested by the patient at this time. Anticipate vaginal Admission and Anticipated Discharge Date Admission Date: August 19, 2024 History of Present Illness Primary Care Provider: NO PCP Patient is a 39-year-old 2 para 1-0-0-1 female who presents at 38-4/7 weeks with possible rupture of membranes at home. Upon arrival in [facility], [place], she was complaining of every 3 to 4-minute contractions. Cervical exam by nursing staff was 3 cm/100%/-1 station. GBS is positive. is also been complicated by diet-controlled GDM and AMA status. testing has been reassuring. Allergies Allergy/AdvReac Type Severity Reaction Status Date / Time No Known Drug Allergies Allergy NKA Verified 08/19/24 22:32 Home Medications Medication Instructions Recorded Confirmed Type 21-iron fu-folic acid 1 tab PO DAILY 01/17/24 08/19/24 History [ Complete] acetone (urine) test (Ketone Urine #50 ea 06/27/24 08/15/24 Rx Test strips) blood sugar diagnostic (OneTouch #150 ea 06/27/24 08/15/24 Rx Verio test strips) blood-glucose meter (OneTouch #1 ea 06/27/24 08/15/24 Rx Verio Reflect Meter) lancets 33 gauge (OneTouch Delica #150 ea 06/27/24 08/15/24 Rx Plus Lancet) Patient History Medical History History of chicken pox No known health problems Surgical History History of tooth extraction wisdom teeth Family History Mother Depression Heart murmur Grandmother (Maternal) Lung cancer Other Colorectal cancer Denies family history of Ovarian cancer Breast cancer Social History Smoking Status: Never smoker Second Hand Exposure: No; Do You Dip or Chew Tobacco: No; Hx Alcohol Use: No Hx Substance Use: No Preferred Language: Spanish Communication Ability: Effective Electrical Intern Required: No Beliefs That Will Affect Care: None marital status: marital status details: Js Hoffman (38) [phone] Current Living Situation: Spouse Current Living Situation Comment: lives with spouse, son, no pets current occupational status: employed current occupation: [employer] Other Information That Helps Us Care for You: No Feels Safe at Home: Yes Safety Concerns: Feels Safe At This Time Assistive Devices: Contacts and Glasses Review of Systems All systems reviewed & are unremarkable except as noted in HPI & below Physical Exam Constitutional: WD/WN, vitals as above Psychiatric: A+Ox3, euthymic affect Genitourinary: OB Exam Abdomen: + vertex, + estimated weight (6-7 pounds) and + regular contractions (Q3 minutes) Manual OB Exam: + cervical dilation 3 cm, + cervical effacement 100% and + station -1 OB Exam Monitor Tracing: + external FHT monitor used, + external uterine monitor used, + category I and + normal FHT variability Results & Data Vital Signs (Past 12 Hours) Vital Signs Temp Pulse Resp BP Pulse Ox 08/20/24 00:35 86 133/62 08/20/24 00:32 83 124/60 08/20/24 00:31 90 98 08/20/24 00:29 82 128/63 08/20/24 00:26 20 08/20/24 00:26 87 20 125/64 97 08/20/24 00:23 87 120/56 L 08/20/24 00:21 20 08/20/24 00:21 83 20 97 08/20/24 00:20 81 129/59 L 08/20/24 00:18 20 08/20/24 00:18 20 08/20/24 00:17 83 134/63 08/20/24 00:16 81 98 08/20/24 00:14 82 20 134/62 08/20/24 00:11 79 135/82 98 08/20/24 00:06 81 97 08/20/24 00:01 80 97 08/19/24 23:56 84 97 08/19/24 23:53 85 94 08/19/24 23:51 81 98 08/19/24 23:46 82 97 08/19/24 23:41 86 97 08/19/24 22:34 91 H 123/76 08/19/24 22:32 98.4 F 18 Code Status & VTE Plan VTE Prophylaxis Plan VTE Prophylaxis will be ordered: No Coding Level of Care Code 17771 INT INP/OBS CARE MIN Diagnoses Elderly multigravida O09.529
[2024-08-20] MEDS: OXYTOCIN 30 UNITS/NSS 30 UNITS/500 ML BAG IV PRN (01:25)
[2024-08-20] MEDS: fentaNYL citrate PF 100 MCG/2 ML VIAL ONE (01:30)
[2024-08-20] MEDS: ePHEDrine sulfate 50 MG/ML AMP ONE (01:30)
[2024-08-20 01:35] VITALS: RESP 18
[2024-08-20] MEDS ORDERED: OXYTOCIN 30 UNITS/NSS 30 UNITS/500 ML BAG IV PRN (01:42)
[2024-08-20] MEDS ORDERED: HYDROCORTISONE ACETATE 25 MG SUPP PR PRN (01:42)
[2024-08-20] MEDS ORDERED: oxyCODONE/ACETAMINOPHEN 5mg/325mg TAB PO PRN (01:42)
[2024-08-20] MEDS ORDERED: ACETAMINOPHEN 325 MG TAB PO PRN (01:42)
--- NOTE | 2024-08-20 01:48 | Delivery Summary ---
Vaginal Delivery Summary Date of Service August 20, 2024 Vaginal Delivery Summary and 1st Degree LAC (clitoral) Patient is a 39-year-old 2 para 1-0-0-1 female who presents at 38-4/7 weeks with a chief complaint of leaking amniotic fluid at approximately 2100. Shortly after that she started to have more regular contractions. She was 3 cm dilated upon arrival in labor and delivery and requesting epidural analgesia. She progressed to full dilation and pushed effectively over intact perineum for delivery of a viable female . After the head was delivered the shoulders were delivered without maternal effort and the rest of the infant followed with ease. She was vigorous crying and moving all 4 limbs. After 1 minute, the cord was clamped and cut. After cord blood was obtained, the placenta was expressed intact with a three-vessel cord. bleeding was controlled with dilute Pitocin and fundal massage. There is a superficial abrasion vaginally which was not bleeding and therefore not repaired, however a clitoral first-degree laceration was bleeding and repaired with 3-0 chromic with a [id number] stitch. Mother and infant were doing well after delivery. QBL was 105 mL [facility] Vaginal Delivery Charge Delivery Type Details: and 1st Degree LAC (clitoral)
[2024-08-20] MEDS ORDERED: PENICILLIN GK 3 MU in DEXTROSE 5% 100 ML IV PRN (02:21)
[2024-08-20] MEDS: BUPIVACAINE 0.25% PF 30 ML VIAL EPI STA (05:17)
[2024-08-20] MEDS: LIDOCAINE 2%/EPINEPHRINE 1:200,000 20 ML PF EPI STA (05:19)
[2024-08-20] MEDS: fentaNYL citrate PF 100 MCG/2 ML VIAL EPI STA (05:19)
[2024-08-20] MEDS: SODIUM CHLORIDE 0.9% PF INJ 10 ML VIAL EPI STA (05:20)
[2024-08-20] MEDS: DIPHTHER/TETAN/PERTUS Vaccine (Tdap, Adol/Adult) 0.5mL IM ONE (05:20)
[2024-08-20] MEDS: IBUPROFEN 600 MG TAB PO PRN (05:42)
[2024-08-20] MEDS: PRENATAL VITAMIN 1 TAB PO SCH (07:34)
[2024-08-20] MEDS: DOCUSATE SODIUM 100 MG CAP PO SCH (07:34)
[2024-08-20] MEDS: BENZOCAINE 20% SPRY 85 APPLN/85 GM CAN EXT PRN (07:34)
--- NOTE | 2024-08-20 08:27 | Obstetrical Progress Note ---
Date of Service August 20, 2024 Assessment & Plan (1) Encounter for care and examination after delivery: satisfactory course continue current care plan Subjective Ambulation: ambulating normally Voiding: no voiding problems Passing Gas:: Yes Diet Tolerance:: regular diet Lochia:: Moderate Feeding Type:: breast feeding Review of Systems All systems reviewed & are unremarkable except as noted in HPI & below Physical Exam Constitutional WD/WN, vitals as above Psychiatric A+Ox3, euthymic affect Genitourinary OB Exam Abdomen: + fundal height Fundus: + firm and + relation to umbilicus (at U) Results & Data Vital Signs (Past 12 Hours) Vital Signs Temp Pulse Pulse Resp BP BP Pulse Ox 08/20/24 04:25 98.2 F 96 H 18 126/76 98 08/20/24 04:15 18 08/20/24 04:06 89 119/57 L 08/20/24 03:51 93 H 123/64 08/20/24 03:36 85 126/58 L 08/20/24 03:21 88 133/59 L 08/20/24 03:06 89 125/60 08/20/24 03:05 18 08/20/24 02:51 89 141/57 H 08/20/24 02:36 80 118/57 L 08/20/24 02:35 18 08/20/24 02:21 84 124/58 L 08/20/24 02:20 18 08/20/24 02:06 85 133/66 08/20/24 02:05 18 08/20/24 01:51 81 134/62 08/20/24 01:50 18 08/20/24 01:46 87 97 08/20/24 01:44 95 H 92 08/20/24 01:41 91 H 95 08/20/24 01:36 85 114/64 95 08/20/24 01:35 97.9 F 18 08/20/24 01:31 96 H 97 08/20/24 01:29 97 H 18 124/60 08/20/24 01:26 91 H 97 08/20/24 01:21 90 95 08/20/24 01:16 96 H 99 08/20/24 01:14 94 08/20/24 01:14 87 08/20/24 01:14 89 134/75 08/20/24 01:11 86 97 08/20/24 01:06 78 97 08/20/24 01:01 74 97 08/20/24 00:58 75 131/70 08/20/24 00:56 81 96 08/20/24 00:51 84 98 08/20/24 00:46 80 97 08/20/24 00:42 20 08/20/24 00:42 97.9 F 20 08/20/24 00:41 84 98 08/20/24 00:38 90 131/61 08/20/24 00:37 85 94 08/20/24 00:36 87 96 08/20/24 00:35 86 133/62 08/20/24 00:32 83 124/60 08/20/24 00:31 90 98 08/20/24 00:29 82 128/63 08/20/24 00:26 20 08/20/24 00:26 87 20 125/64 97 08/20/24 00:23 87 120/56 L 08/20/24 00:21 20 08/20/24 00:21 83 20 97 08/20/24 00:20 81 129/59 L 08/20/24 00:18 20 08/20/24 00:18 20 08/20/24 00:17 83 134/63 08/20/24 00:16 81 98 08/20/24 00:14 82 20 134/62 08/20/24 00:11 79 135/82 98 08/20/24 00:06 81 97 08/20/24 00:01 80 97 08/19/24 23:56 84 97 08/19/24 23:53 85 94 08/19/24 23:51 81 98 08/19/24 23:46 82 97 08/19/24 23:41 86 97 08/19/24 22:34 91 H 123/76 08/19/24 22:32 98.4 F 18 O2 Del Method 08/20/24 04:25 Room Air 08/20/24 04:15 08/20/24 04:06 08/20/24 03:51 08/20/24 03:36 08/20/24 03:21 08/20/24 03:06 08/20/24 03:05 08/20/24 02:51 08/20/24 02:36 08/20/24 02:35 08/20/24 02:21 08/20/24 02:20 08/20/24 02:06 08/20/24 02:05 08/20/24 01:51 08/20/24 01:50 08/20/24 01:46 08/20/24 01:44 08/20/24 01:41 08/20/24 01:36 08/20/24 01:35 08/20/24 01:31 08/20/24 01:29 08/20/24 01:26 08/20/24 01:21 08/20/24 01:16 08/20/24 01:14 08/20/24 01:14 08/20/24 01:14 08/20/24 01:11 08/20/24 01:06 08/20/24 01:01 08/20/24 00:58 08/20/24 00:56 08/20/24 00:51 08/20/24 00:46 08/20/24 00:42 08/20/24 00:42 08/20/24 00:41 08/20/24 00:38 08/20/24 00:37 08/20/24 00:36 08/20/24 00:35 08/20/24 00:32 08/20/24 00:31 08/20/24 00:29 08/20/24 00:26 08/20/24 00:26 08/20/24 00:23 08/20/24 00:21 08/20/24 00:21 08/20/24 00:20 08/20/24 00:18 08/20/24 00:18 08/20/24 00:17 08/20/24 00:16 08/20/24 00:14 08/20/24 00:11 08/20/24 00:06 08/20/24 00:01 08/19/24 23:56 08/19/24 23:53 08/19/24 23:51 08/19/24 23:46 08/19/24 23:41 08/19/24 22:34 08/19/24 22:32
--- NOTE | 2024-08-20 09:42 | Anesthesia Procedure Note ---
Date of Service August 20, 2024 Anesthesia Post Epidural Note Vital Signs Vital Signs: Temp Pulse Resp BP Pulse Ox O2 Del Method 36.5 C 73 18 115/67 98 Room Air 08/20/24 07:45 08/20/24 07:45 08/20/24 07:45 08/20/24 07:45 08/20/24 07:45 08/20/24 07:45 Pain Intensity Perineal: Pain Intensity: 1 Notes Mental Status: alert / awake / arousable Nausea / Vomiting: adequately controlled Pain: adequately controlled Airway Patency, RR, SpO2: stable & adequate BP & HR: stable & adequate Hydration State: stable & adequate Neuraxial Anesthesia: was administered and sensory block is resolving Anesthetic Complications: no major complications apparent and Pt Satisfied with anesthetic care Epidural: Removed without complications and With tip intact
[2024-08-21 06:38] LABS: Hematocrit (blood only) 32.1 % (37.0-47.0); Hemoglobin 10.7 g/dl (12.0-16.0); Mean Corpuscular Hemoglobin 30.1 pg (25.0-34.0); Mean Corpuscular Hgb Conc 33.3 g/dL (32.0-36.0); Mean Corpuscular Volume 90.2 fL (80.0-100.0); Mean Platelet Volume 9.5 fL (9.4-12.4); Platelet Count 256 K/uL (130-400); RDW Coefficient of Variation 13.5 % (11.5-14.5); RDW Standard Deviation 44.2 fL (36.4-46.3); Red Blood Count 3.56 M/uL (4.20-5.40); White Blood Count 10.84 K/ul (4.8-10.8)
--- NOTE | 2024-08-21 08:25 | Obstetrical Progress Note ---
Date of Service August 21, 2024 Assessment & Plan (1) Encounter for care and examination after delivery: 39 yo PP1 from , doing well -Meeting all pp milestones -O+/rubella immune/ -f/u 6 weeks for appt, stable for dc Subjective Ambulation: ambulating normally Voiding: no voiding problems Passing Gas:: Yes Diet Tolerance:: regular diet Lochia:: Small Feeding Type:: breast feeding Pain well managed with medication Review of Systems Denies fevers, chills, n/v, ENGLE, CP, SOB Physical Exam Constitutional WD/WN, vitals as above no acute distress Respiratory normal respiratory effort, lungs clear to auscultation Cardiovascular RRR, no murmur, no edema Gastrointestinal (Abdomen) Percussion/Palpation: abdomen soft; abdomen nontender fundus firm at umbilicus and NT Musculoskeletal BLE symmetric, nonerythematous, nontender Results & Data Vital Signs (Past 12 Hours) Vital Signs Temp Pulse Resp BP Pulse Ox O2 Del Method 08/21/24 00:10 97.9 F 86 18 115/70 97 Room Air
[2024-08-21 09:44] VITALS: BP 113/71; PULSE 81; TEMP 97.7; O2SAT 98
[2024-08-21] MEDS ORDERED: bisacodyL 5 MG TABEC PO SCH (20:00)
[2024-08-22] MEDS ORDERED: bisacodyL 10 MG SUPP PR PRN
== END 2024-08-21 13:00 | disposition home or self-care (01) | DRG 768 ==
LOC: OPB 22:06 → 4S1 22:10 → 4E2 08-20 04:37